=== PATIENT | female | born 1990 | race Caucasian/White ===

== ENCOUNTER 2016-06-25 21:19 | Inpatient (IN) | payer OTHER ==
--- NOTE | ~2016-06-25 | HP ---
Unit #: [id number] #: [id number] Patient: ISAIAH PADILLA [id number] [place] [address] [id number] I MR#: [id number] NAME: ISAIAH PADILLA ROOM: [facility] Age: 26 Sex: F Admission Date: 06/26/2016 : 1990 Attending Physician: Prudencio Younger M.D. Admitting Physician: Prudencio Younger M.D. Primary Care Physician: Primary Care Physician No HISTORY AND PHYSICAL HISTORY OF PRESENT ILLNESS Isaiah is a 26 year old admitted to [facility] because of her abuse of alcohol. She is detoxing. PAST MEDICAL HISTORY 1. Long history of alcohol abuse. 2. Long history of poly illicit substance abuse. 3. Hepatitis C. 4. History of pancreatitis. 5. Asthma. PAST SURGICAL HISTORY 1. section x2 2. Lymph node biopsy 3. Breast biopsy, benign ALLERGIES No known drug allergies. SOCIAL HISTORY Smokes one-half pack per day. Drinks alcohol on occasion. Admits to a long history of polysubstance abuse to include methamphetamine and susan. FAMILY HISTORY Medically noncontributory. REVIEW OF SYSTEMS CONSTITUTIONAL: No fever or chills. HEENT: Denies any sore throat, ear pain or runny nose. CARDIOVASCULAR: Denies chest pain, irregular heart rhythm or palpitations. CHEST: Denies shortness of breath or cough. No hemoptysis. GASTROINTESTINAL: Denies nausea, vomiting, diarrhea or chronic constipation. ENDOCRINE: Denies history of increased thirst or urination. No recent significant weight loss or gain. GENITOURINARY: Denies dysuria, frequency, or hematuria. SKIN: Denies any rashes. HEMATOLOGIC: Denies history of increased bleeding or bruising. MUSCULOSKELETAL: Denies any hot, swollen joints. No generalized muscle pain. NEUROLOGIC: Denies problems with vision or speech. No frequent, severe headaches. No numbness, tingling or weakness in any extremities. Denies Unit #: [id number] #: [id number] Patient: ISAIAH PADILLA loss of bladder or bowel control. CURRENT MEDICATIONS Detox protocol. PHYSICAL EXAMINATION GENERAL: Alert, well-nourished, in no apparent distress. VITAL SIGNS: Blood pressure 128/76, heart rate 74, respirations 16, temperature 98.6. WEIGHT: 120 pounds. HEIGHT: 5'4". SKIN: Warm and dry without rash or lesion. HEENT: Normocephalic. TMs not viewed. Oral and nasal passages clear. Conjunctivae clear. Pupils equal, round and reactive to light and accommodation. Extraocular movements intact. NECK: Supple without lymphadenopathy or thyromegaly. HEART: Regular rate and rhythm without murmur. LUNGS: Clear. ABDOMEN: Soft, nontender. : Not done. EXTREMITIES: No evidence of cyanosis, clubbing or edema. Moves all extremities without focal deficit. NEUROLOGICAL: Grossly within normal limits. Cranial Nerves: II: Visual rodrigez are intact. III, IV AND : Extraocular movements are intact. Pupils are equal, round and reactive to light. V: Facial sensation is grossly normal. VII: Facial movements and expression are normal. VIII: Auditory acuity grossly intact. IX, X: Uvula is midline. Phonation is normal. XI: Patient shrugs shoulders and turns head normally. XII: Tongue protrudes in the midline. Sensory and Motor Function: Sensory and motor sensation is grossly normal. Motor: moves all extremities well. Coordination: Gait is normal. Deep Tendon Reflexes: Intact. IMPRESSION Psychiatric admission RECOMMENDATIONS PSYCHIATRIC: Per psychiatrist. MEDICAL: I see no contraindications to participating in facility's activities. MEDICAL PROGNOSIS Good. MEDICAL CONDITION Stable. Dictated by... Nina SinclairARanjana. for Ricardo Norton/denise Unit #: [id number] #: [id number] Patient: ISAIAH PADILLA TD: 06/27/2016 01:03 JOB #: [id number] HISTORY AND PHYSICAL Page 1 of 1 X Hilary Dumont HISTORY AND PHYSICAL
--- NOTE | ~2016-06-25 | PN ---
Unit #: [id number] #: [id number] Patient: ISAIAH PADILLA [id number] [facility] [address] [place] [address] [id number] I MR#: [id number] NAME: ISAIAH PADILLA ROOM: [facility] Age: 26 Sex: F Admission Date: 06/26/2016 : 1990 Attending Physician: Prudencio Younger M.D. Admitting Physician: Prudencio Younger M.D. Primary Care Physician: Primary Care Physician Ashley RAMIRES PROGRESS NOTES DATE 06/28/2016 DISCUSSION The patient continues to complain of severe swinging moods, anxiety, and symptoms of withdrawal. She does report a history of positive response to lithium. She reports that she is status post tubal ligation and does repeat beta HCG is unnecessary. I will go ahead and restart the patient on Eskalith CR 450 mg twice daily. Dictated by... Prudencio Younger M.D. CB/roz TD: 06/28/2016 12:25 JOB #: [id number] KEYLA PROGRESS NOTES Page 1 of 1 X Prudencio Younger MD PROGRESS NOTE
--- NOTE | ~2016-06-25 | PN ---
Unit #: [id number] #: [id number] Patient: ISAIAH PADILLA [id number] [facility] [address] [place] [address] [id number] I MR#: [id number] NAME: ISAIAH PAIDLLA ROOM: [facility] Age: 26 Sex: F Admission Date: 06/26/2016 : 1990 Attending Physician: Prudencio Younger M.D. Admitting Physician: Prudencio Younger M.D. Primary Care Physician: Primary Care Physician Ashley ZUNIGA NOTES DATE 06/27/2016 DISCUSSION The patient awakens for interview today. She is noted to be quite labile and pressured in her presentation and reports that she has been on lithium in the past. At this point, I would like to start Depakote or another mood stabilizing medication. However, the patient's liver functions remain a bit elevated and more to the point, we do not have a negative HCG yet nor do we have documented infertility. Accordingly, we will hold on initiation of this medication. The patient reports a history of intolerance of the sedative effects of Seroquel. Dictated by... Prudencio Younger M.D. RICK/linda TD: 06/27/2016 18:59 JOB #: [id number] KEYLA ZUNIGA NOTES Page 1 of 1 X Prudencio Younger MD PROGRESS NOTE
--- NOTE | ~2016-06-25 | PN ---
Unit #: [id number] #: [id number] Patient: ISAIAH PADILLA [id number] [facility] [address] [place] [address] [id number] I MR#: [id number] NAME: ISAIAH PADILLA ROOM: [facility] Age: 26 Sex: F Admission Date: 06/26/2016 : 1990 Attending Physician: Prudencio Younger M.D. Admitting Physician: Prudencio Younger M.D. Primary Care Physician: Primary Care Physician Ashley RAMIRES PROGRESS NOTES DATE 06/29/2016 DISCUSSION The patient is abed resting comfortably today. She offers no new complaints. We continue current treatment. Dictated by... Prudencio Younger M.D. CB/denise TD: 06/30/2016 02:39 JOB #: [id number] KEYLA PROGRESS NOTES Page 1 of 1 X Prudencio Younger MD X PROGRESS NOTE
--- NOTE | ~2016-06-25 | PA ---
Unit #: [id number] #: [id number] Patient: ISAIAH PADILLA [id number] [place] [address] [id number] I MR#: [id number] NAME: ISAIAH PADILLA ROOM: [facility] Age: 26 Sex: F Admission Date: 06/26/2016 : 1990 Date of Assessment: 06/26/2016 Attending Physician: Prudencio Younger M.D. Admitting Physician: Prudencio Younger M.D. Primary Care Physician: Primary Care Physician No PSYCHIATRIC ASSESSMENT IDENTIFYING INFORMATION The patient is a 26-year-old white female with a history of polysubstance and alcohol abuse. INFORMANT(S) Chart, patient could not be aroused for interview. CHIEF COMPLAINT None given. HISTORY OF PRESENT ILLNESS The patient is a 26-year-old white female brought to this facility by her father last evening. The patient reports that she has been using alcohol and drugs. It is unclear what substances the patient has been using from her needs assessment, however. The patient has been admitted to the hospital recently secondary to pancreatitis indicating a fairly significant substance abuse history. The patient had stated that she "hates the person she has become." Her blood alcohol on admission was 0.083, her pulse 100 and CIWA score unfortunately was not completed. The patient is currently on no prescribed medications. Further history cannot be obtained as the patient is quite somnolent at this time. PAST PSYCHIATRIC HISTORY Noncontributory. FAMILY HISTORY Noncontributory. SOCIAL HISTORY The patient lives with a boyfriend whom the father states enables her. She does have an extensive history of alcohol use and apparently uses other substances though the chart does not indicate which. MEDICAL HISTORY As noted previously, the patient was recently hospitalized with pancreatitis. MEDICATION HISTORY None. ALLERGIES None. Unit #: [id number] #: [id number] Patient: ISAIAH PADILLA MENTAL STATUS EXAM At this time, reveals the patient to be a soundly sleeping white female. Multiple attempts to arouse her trevino unsuccessful. ASSETS AND LIABILITIES Assets, supportive family. Liabilities, ongoing substance use. ADMITTING DIAGNOSES Alcohol use disorder. PSYCHIATRIC PLAN/TREATMENT GOALS The patient remains hospitalized for safety and stabilization. Routine detoxification protocol for alcohol has been initiated. The patient will participate in appropriate gilbert and milieu activities and I will discuss with the patient when she is able to participate in interview, possible post discharge chemical treatment options. ESTIMATED LENGTH OF STAY Three to five days. Dictated by... Prudencio Younger M.D. RICK/linda TD: 06/26/2016 15:06 JOB #: [id number] PSYCHIATRIC ASSESSMENT Page 1 of 1 X Prudencio Younger MD X PSYCHIATRIC ASSESSMENT
--- NOTE | ~2016-06-25 | DS ---
Unit #: [id number] #: [id number] Patient: ISAIAH PADILLA [id number] [facility] [address] [place] [address] [id number] I MR#: [id number] NAME: ISAIAH PAIDLLA ROOM: [facility] Age: 26 Sex: F Admission Date: 06/26/2016 : 1990 Discharge Date: 06/30/2016 Attending Physician: Prudencio Younger M.D. Primary Care Physician: No Primary Care Physician DISCHARGE SUMMARY REASON FOR ADMISSION The patient is a 26-year-old white female admitted for opioid abuse and mood instability. HOSPITAL COURSE The patient was admitted to the [address] [place] [address] unit and placed on suicide precautions. Routine laboratory testing was done and confirmed that the patient was not and, thus, she was restarted on medication to which she reported a history of positive response. The patient's stay in the hospital was otherwise uneventful and her detox went smoothly. By 06/30/2016 the patient was discharged stating that she would follow up in her parents' home [facility]. Discharge was ordered. DISCHARGE DIAGNOSES 1. Alcohol use disorder. 2. Bipolar disorder, unspecified. 3. Hepatitis C by history. 4. History of pancreatitis. FOLLOWUP CARE She will follow up through the auspices of [facility]. DISCHARGE MEDICATIONS 1. Eskalith CR 450 mg b.i.d. for mood stabilization. 2. Vistaril 50 mg q.6 h. p.r.n. anxiety. PROGNOSIS Fair. DIET AND ACTIVITY No restrictions placed on the patient on discharge. Dictated by... Prudencio Younger M.D. CB/cydney TD: 07/02/2016 13:50 JOB #: [id number] Unit #: [id number] #: [id number] Patient: ISAIAH PADILLA DISCHARGE SUMMARY Page 1 of 1 X Prudencio Younger MD X DISCHARGE SUMMARY
[2016-06-26 09:53] LABS: BASOPHIL% 0.7 % (0-2.5); EOSINOPHIL# 0.1 X10e3 (0-0.7); EOSINOPHIL% 2.1 % (0.0-7.0); HEMATOCRIT 35.2 % (35.0-45.0); HEMOGLOBIN 11.4 gm/dL (12.0-16.0); LYMPHOCYTE# 1.6 X10e3 (1.0-3.5); LYMPHOCYTE% 28.6 % (17.0-45.0); MEAN CELL VOLUME 89.6 FL (83-96); MEAN CORPUSCULAR HEMOGLOBIN 29.1 PG (28-34); MEAN CORPUSCULAR HGB CONC 32.5 g/dL (30-36); MEAN PLATELET VOLUME 7.8 FL (6.5-11.5); MONOCYTE# 0.4 X10e3 (0-1.0); MONOCYTE% 6.5 % (3.0-12.0); NEUTROPHIL# 3.5 X10e3 (1.5-7.1); NEUTROPHIL% 62.1 % (40-75); PLATELET COUNT 296 X10e3 (140-420); RED BLOOD COUNT 3.92 X10e (3.90-5.30); RED CELL DISTRIBUTION WIDTH 17.4 % (11.0-15.5); WHITE BLOOD COUNT 5.6 X10e3 (4.0-10.5)
[2016-06-26 10:01] LABS: DIFF IND NO
[2016-06-26 10:24] LABS: ALBUMIN SERUM 3.7 g/dL (3.5-5.0); BILIRUBIN,TOTAL 0.6 mg/dL (0.2-2.0); BUN/CREATININE RATIO 7.14; CALCIUM SERUM 8.9 mg/dL (8.4-10.2); CREATININE SERUM 0.7 mg/dL (0.6-1.4); GLOM FILT RATE Estimated 119.6 mL/min (>60); POTASSIUM 3.4 mmol/L (3.5-5.1); PROTEIN TOTAL SERUM 6.7 g/dL (6.0-8.3)
[2016-06-27 09:46] LABS: URINE APPEARANCE CLEAR; URINE BILIRUBIN NEG (NEG); URINE BLOOD NEG (NEG); URINE COLOR DK YELLOW; URINE GLUCOSE NEG (NEG); URINE KETONE NEG (NEG); URINE LEUKOCYTE ESTERASE NEG (NEG); URINE NITRATE NEG (NEG); URINE PROTEIN NEG (NEG); URINE SPECIFIC GRAVITY 1.016 (1.003-1.035)
[2016-06-27 11:12] LABS: AMPHETAMINE NEG (NEG); BARBITURATES NEG (NEG); BENZODIAZEPINES POS (NEG); COCAINE NEG (NEG); MARIJUANA POS (NEG); OPIATES NEG (NEG); TRICYCLIC ANTIDEPRESSANTS NEG (NEG); U METHADONE NEG (NEG)
[2016-07-02 07:05] LABS: HA AB IGM (HEPPAN) Nonreactive (()); HB CORE AB IGM (HEPPAN) Nonreactive (Nonreactive); HB S AG (HEPPAN) Nonreactive (Nonreactive); HEP C AB (HEPPAN) Reactive (Nonreactive)
== END 2016-06-30 15:07 | disposition home or self-care (01) | DRG 897 ==
LOC: P1E 06-26 00:43
PROVIDERS: Specialist
PROC: HZ2ZZZZ Detoxification Services for Substance Abuse Treatment (ICD-10-PCS; principal; 2016-06-26)
DX: F10.20 Alcohol dependence, uncomplicated (principal); B19.20 Unspecified viral hepatitis C without hepatic coma; J45.909 Unspecified asthma, uncomplicated
CPT/HCPCS: 80053; 80074; 80307; 81003; 84703; 85025; 86592; 87806